=== PATIENT | male | born 1965 | race Caucasian/White ===

== ENCOUNTER 2023-12-17 18:29 | Observation (INO) ==
[2023-12-17] MEDS: ceFAZolin 2 GM in DEXTROSE 5% IN WATER 50 ML IV ONE (18:49)
[2023-12-17] MEDS: DIPH,PERTUSS(ACELL),TET VAC/PF 0.5 ML SYRINGE IM ONE (18:49)
[2023-12-17] MEDS: ONDANSETRON 4 MG/2 ML VIAL IV ONE (19:00)
[2023-12-17] MEDS: fentaNYL 100 MCG/2 ML VIAL IV ONE (19:00)
[2023-12-17 19:42] LABS: Basophils # (Auto) 0.09 K/mcL (0.00-0.30); Eosinophils # (Auto) 0.28 K/mcL (0.00-0.70); Eosinophils % (Auto) 3.2 % (0.0-7.0); Hematocrit 44.5 % (40.1-51.0); Hemoglobin 14.9 g/dL (13.7-17.5); Lymphocytes # (Auto) 2.58 K/mcL (1.50-4.80); Lymphocytes % (Auto) 29.4 % (15.5-49.0); Mean Cell Volume 88.6 fL (80.0-100.0); Mean Corpuscular HGB Conc 33.5 g/dL (31.0-36.0); Mean Platelet Volume 10.3 fL (8.8-12.5); Monocytes # (Auto) 0.69 K/mcL (0.10-0.90); Monocytes % (Auto) 7.9 % (1.0-12.0); Neutrophils % (Auto) 58.3 % (38.0-78.0); Platelet Count 233 K/mcL (140-440); RBC 5.02 M/mcL (4.63-6.08); Red Cell Distribution Width 13.1 % (11.5-14.5); WBC 8.8 K/mcL (4.5-11.0)
[2023-12-17 19:51] LABS: ALT/SGPT 16 U/L (<40); AST/SGOT 26 U/L (<40); Albumin 4.4 gm/dL (3.2-5.2); Albumin/Globulin Ratio 1.6 (1.0-2.3); Alkaline Phosphatase 70 U/L (39-117); Bilirubin,Total 0.5 mg/dL (0.1-1.0); Blood Urea Nitrogen 31 mg/dL (6-20); Calcium 9.4 mg/dL (8.6-10.4); Carbon Dioxide 25 mmol/L (22-30); Chloride 106 mmol/L (96-108); Globulin 2.8 gm/dL (2.2-3.7); Glomerular Filtration Rate 66; Glucose 101 mg/dL (70-105); Sodium 143 mmol/L (133-145)
[2023-12-17 19:53] LABS: Prothrombin Time 13.2 sec (11.9-14.5)
[2023-12-17] MEDS: 0.9 % SODIUM CHLORIDE 1,000 ML IV ONE (21:14)
[2023-12-17 21:45] LABS: Appearance,Urine Clear (Clear); Bilirubin,Urine Negative (Negative); Color,Urine Yellow; Glucose,Urine (UA) Negative (Negative); Ketones,Urine Negative (Negative); Leukocyte Esterase,Urine Negative /uL (Negative); Nitrate,Urine Negative (Negative); PH,Urine 5.5 (5.0-9.0); Protein,Urine Negative (Negative); Specific Gravity,Urine >= 1.030 (1.000-1.035); Urine Blood Negative ery/mcL (Negative); Urobilinogen,Urine Normal
[2023-12-17] MEDS: SENNOSIDES 1 TABLET PO SCH (22:05)
[2023-12-17] MEDS: DOCUSATE SODIUM 100 MG CAPSULE PO SCH (22:05)
[2023-12-17] MEDS: 0.9 % SODIUM CHLORIDE 10 ML SYRINGE IV SCH (22:05)
[2023-12-17] MEDS: ceFAZolin 1 GM VIAL IV SCH (22:06)
[2023-12-18] MEDS: ceFAZolin 1 GM VIAL IV SCH (01:33)
[2023-12-18] MEDS: ONDANSETRON 4 MG/2 ML VIAL IV PRN (07:26)
[2023-12-18] MEDS: HYDROmorphone 0.5 MG/0.5 ML SYRINGE IV PRN (07:42)
[2023-12-18] MEDS ORDERED: DEXAMETHASONE 10 MG/ML VIAL ONE (12:16)
[2023-12-18] MEDS ORDERED: fentaNYL 100 MCG/2 ML VIAL ONE (12:16)
[2023-12-18] MEDS ORDERED: GLYCOPYRROLATE 0.2 MG/ML VIAL IV ONE ×2 (12:16→15:08)
[2023-12-18] MEDS ORDERED: MIDAZOLAM 2 MG/2 ML VIAL ONE (12:16)
[2023-12-18] MEDS ORDERED: KETOROLAC 30 MG/ML VIAL ONE (12:16)
[2023-12-18] MEDS ORDERED: LIDOCAINE 2% PF 5 ML VIAL ONE (12:16)
[2023-12-18] MEDS ORDERED: KETAMINE 50 MG/ML Syringe IV ONE (12:16)
[2023-12-18] MEDS ORDERED: PROPOFOL 200 MG/20 ML VIAL IV ONE (12:16)
[2023-12-18] MEDS ORDERED: ONDANSETRON 4 MG/2 ML VIAL ONE (12:16)
[2023-12-18] MEDS: ceFAZolin 2 GM in DEXTROSE 5% IN WATER 50 ML IV SCH (14:48)
[2023-12-18] MEDS ORDERED: PHENYLephrine 1 MG/10 ML SYRINGE (ANEST) ONE (14:57)
[2023-12-18] MEDS ORDERED: MAGNESIUM SULFATE 2 GM/50 ML BAG IV ONE (14:58)
[2023-12-18] MEDS ORDERED: ONDANSETRON 4 MG/2 ML VIAL IV PRN (15:06)
[2023-12-18] MEDS ORDERED: NALOXONE HCL 0.4 MG/ML VIAL IV PRN (15:06)
[2023-12-18] MEDS ORDERED: IPRATROPIUM/ALBUTEROL 3 ML AMPUL.NEB NEB PRN (15:06)
[2023-12-18] MEDS ORDERED: FLUMAZENIL 0.1 MG/ML ML IV PRN (15:06)
[2023-12-18] MEDS ORDERED: LACTATED RINGERS 250 ML IV PRN (15:06)
[2023-12-18] MEDS ORDERED: HYDROmorphone 0.5 MG/0.5 ML SYRINGE IV PRN (15:06)
[2023-12-18] MEDS ORDERED: DROPERIDOL 5 MG/2 ML VIAL IV PRN (15:06)
[2023-12-18] MEDS ORDERED: LACTATED RINGERS 1,000 ML IV SCH (15:15)
[2023-12-18] MEDS ORDERED: HYDROCODONE/APAP 7.5/325MG TABLET PO PRN (16:01)
[2023-12-18] MEDS: BUPIVACAINE 0.5% 50 ML VIAL IJ ONE (16:12)
[2023-12-18] MEDS: ACETAMINOPHEN 1,000 MG/100 ML BAG IV ONE (16:43)
[2023-12-18] MEDS: fentaNYL 100 MCG/2 ML VIAL IV PRN (16:50)
[2023-12-18] MEDS ORDERED: traZODone HCL 50 MG TABLET PO SCH (21:00)
[2023-12-18] MEDS ORDERED: 0.9 % SODIUM CHLORIDE 10 ML SYRINGE IV SCH (22:00)
[2023-12-19] MEDS ORDERED: HYDROCHLOROTHIAZIDE 12.5 MG CAPSULE PO SCH (09:00)
== END 2023-12-18 19:30 | disposition home or self-care (01) ==
LOC: MEDSUR 18:29 → ED 18:29 → MEDSUR 21:15
PROVIDERS: ADMIT Orthopaedic Surgery; ATTEND Orthopaedic Surgery